=== PATIENT | male | born 1965 | race Caucasian/White ===

== ENCOUNTER 2018-10-29 15:28 | Emergency (ER) | payer BC, SELFPAY ==
[~2018-10-29] VITALS: Ht 198.1 cm; Wt 136.4 kg
[2018-10-29] MEDS ORDERED: METO1TAB87 PO (15:39)
[2018-10-29] MEDS ORDERED: ELIQ5TAB PO (15:39)
[2018-10-29] MEDS ORDERED: METF500T13 PO (15:40)
[2018-10-29] MEDS ORDERED: ASPI81TA85 PO (15:40)
[2018-10-29] MEDS ORDERED: ATOR40TA75 (15:40)
[2018-10-29] MEDS ORDERED: ONDANSETRON 4 MG ORAL DISINTEGRATING TAB (Q0162 PER 1MG) PO ONE (16:15)
[2018-10-29 16:30] VITALS: BP 179/68
[2018-10-29] MEDS ORDERED: NITROGLYCERIN 2% OINT 1 GM *U/D* PKT TOP ONE (16:30)
[2018-10-29 16:35] LABS: BASO % 0.5 % (0.0-1.0); EOS # 0.2 10^3/uL (0.0-0.50); EOS % 2.4 % (0.0-3.0); HEMATOCRIT 38.7 % (42.0-52.0); HEMOGLOBIN 11.5 g/dl (13.5-17.5); LYMPH # 1.6 10^3/uL (1.5-4.5); LYMPH % 18.4 % (24.0-44.0); MEAN CORPUSCULAR HEMOGLOBIN 23.3 pg (27.0-33.0); MEAN CORPUSCULAR HGB CONC 29.7 g/dl (32.0-36.5); MEAN CORPUSCULAR VOLUME 78.5 fl (80.0-96.0); MONO # 0.8 10^3/uL (0.0-0.8); NEUTROPHILS # 6.2 10^3/uL (1.8-7.7); NEUTROPHILS % 69.4 % (36.0-66.0); PLATELET COUNT, AUTOMATED 363 10^3/uL (150-450); RED BLOOD COUNT 4.93 10^6/uL (4.30-6.10); WHITE BLOOD COUNT 8.9 10^3/uL (4.0-10.0)
[2018-10-29] MEDS ORDERED: ACETAMINOPHEN TAB 650MG DOSE (2X325MG) PO ONE (16:45)
[2018-10-29] MEDS ORDERED: ONDANSETRON 4MG/2ML VIAL (J2405) IV ONE (16:45)
[2018-10-29 17:01] LABS: ALBUMIN 3.1 GM/DL (3.2-5.2); ALT/SGPT 35 U/L (12-78); BILIRUBIN,DIRECT 0.1 MG/DL (0.0-0.2); BILIRUBIN,TOTAL 0.5 MG/DL (0.2-1.0); BLOOD UREA NITROGEN 16 MG/DL (7-18); CALCIUM LEVEL 8.6 MG/DL (8.5-10.1); CARBON DIOXIDE LEVEL 28 MEQ/L (21-32); CHLORIDE LEVEL 106 MEQ/L (98-107); CPK CREATINE PHOSPHOKINASE 198 U/L (39-308); CREATININE FOR GFR 1.11 MG/DL (0.70-1.30); GLOMERULAR FILTRATION RATE > 60.0 (>56); GLUCOSE, FASTING 87 MG/DL (70-100); LIPASE 105 U/L (73-393); MB/CK RELATIVE INDEX 0.71 (< OR =4); POTASSIUM SERUM 4.1 MEQ/L (3.5-5.1); SODIUM LEVEL 141 MEQ/L (136-145); TOTAL PROTEIN 6.8 GM/DL (6.4-8.2); TROPONIN I < 0.02 NG/ML (< 0.10)
[2018-10-29] MEDS ORDERED: ISOVUE-370 76% 100ML VIAL (Q9967) As Ordered ONE (17:22)
[2018-10-29] MEDS ORDERED: KETOROLAC 30 MG/ML VIAL (J1885) IV ONE (17:30)
--- NOTE | 2018-10-29 17:47 | REPVR ---
EXAM: CT Angiography Chest With Contrast EXAM DATE/TIME: 10/29/2018 5:25 PM CLINICAL HISTORY: 53 years old, male; Pain; Chest pain; Additional info: Left chest pain, HX pes/factor v leiden TECHNIQUE: Axial computed tomographic angiography images of the chest with intravenous contrast using CT angiography protocol. All CT scans at this facility use at least one of these dose optimization techniques: automated exposure control; mA and/or kV adjustment per patient size (includes targeted exams where dose is matched to clinical indication); or iterative reconstruction. Coronal and sagittal reformatted images were created and reviewed. MIP reconstructed images were created and reviewed. CONTRAST: Contrast Material: 75 ml of ISOVUE 370; Contrast Route: IV COMPARISON: CR PORTABLE CHEST X-RAY 10/29/2018 4:45 PM FINDINGS: Pulmonary arteries: No pulmonary embolus. Aorta: No aortic dissection or aneurysm. Lungs: Parenchymal opacity medial basal segment right lower lobe likely represents an infiltrate is associated with focally dilated airways consistent with bronchiectasis. Followup after treatment to document resolution is suggested. There is bibasilar compressive atelectasis. Pleural space: Normal. No pneumothorax. No pleural effusion. Heart: Normal. No cardiomegaly. No pericardial effusion. Lymph nodes: Unremarkable. No enlarged lymph nodes. Bones/joints: The spine demonstrates mild degenerative changes. Soft tissues: Unremarkable. IMPRESSION: 1. Parenchymal opacity medial basal segment right lower lobe likely represents an infiltrate is associated with focally dilated airways consistent with bronchiectasis. Followup after treatment to document resolution is suggested. 2. No pulmonary embolus. 3. No aortic dissection or aneurysm. Electronically signed by: Hernan Vences On 10/29/2018 17:47:22 PM
[2018-10-29] MEDS ORDERED: MORPHINE 2 MG/ML 1ML SYRINGE (J2270) IV ONE (18:45)
[2018-10-29 21:00] VITALS: BP 149/83
[2018-10-29 21:04] LABS: CPK CREATINE PHOSPHOKINASE 161 U/L (39-308); MB/CK RELATIVE INDEX 0.68 (< OR =4); TROPONIN I < 0.02 NG/ML (< 0.10)
--- NOTE | 2018-10-30 17:45 | ECGEPIP ---
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
--- NOTE | 2018-10-30 17:48 | ECGEPIP ---
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
--- NOTE | 2018-11-01 13:14 | ED PDOC ---
Post-Departure Follow-Up certified letter sent to pt re formal read of cta of chst. see report. pcp not d ocumented. please obtain pcp name and fax report for Paty Thorpe MD Nov 01, 2018 13:13
== END 2018-10-29 21:30 | disposition home or self-care (01) ==
LOC: M ED 15:28
DX: R07.89 Other chest pain (principal); I25.10 Atherosclerotic heart disease of native coronary artery without angina pectoris; E11.9 Type 2 diabetes mellitus without complications; E78.5 Hyperlipidemia, unspecified; I10 Essential (primary) hypertension; D68.51 Activated protein C resistance; Z86.718 Personal history of other venous thrombosis and embolism; Z86.711 Personal history of pulmonary embolism; Z95.5 Presence of coronary angioplasty implant and graft; Z79.01 Long term (current) use of anticoagulants; Z79.82 Long term (current) use of aspirin; Z79.899 Other long term (current) drug therapy
CPT/HCPCS: 71045; 71275; 80048; 80076; 82550; 82553; 83690; 84484; 85025; 93005; 93041; 94760; 96374; 96375; 99285; J1885; J2270; J2405; Q9967